=== PATIENT | male | born 2005 ===

== ENCOUNTER → 2024-03-30 06:37 | Day surgery (SDC) | payer BC, SELFPAY | LOC: GI 06:37 | PROVIDERS: ATTENDING PHYSICIAN Internal Medicine Gastroenterology; FAMILY PHYSICIAN Pediatrics | DX: K64.0 First degree hemorrhoids (principal); K50.80 Crohn's disease of both small and large intestine without complications; K52.89 Other specified noninfective gastroenteritis and colitis; K29.50 Unspecified chronic gastritis without bleeding; K20.90 Esophagitis, unspecified without bleeding | CPT/HCPCS: 45380; 43239; 88305; 88342 ==